=== PATIENT | female | born 1960 ===

== ENCOUNTER 2016-05-24 00:51 | Emergency (ER) | payer MEDICARE | END 2016-05-24 01:20 | disposition home or self-care (01) | LOC: ER 00:51 | DX: B85.0 Pediculosis due to Pediculus humanus capitis (principal); Z79.899 Other long term (current) drug therapy; F17.210 Nicotine dependence, cigarettes, uncomplicated; J44.9 Chronic obstructive pulmonary disease, unspecified; J45.909 Unspecified asthma, uncomplicated; I10 Essential (primary) hypertension; F31.9 Bipolar disorder, unspecified ==